=== PATIENT | male | born 1955 ===

== ENCOUNTER 2018-04-09 15:04 | Observation (INO) | payer OTHER ==
[~2018-04-09] VITALS: Ht 182.9 cm; Wt 109.0 kg
[2018-04-09 15:51] LABS: BASOPHILS ABSOLUTE AUTO 0.02 K/mm3 (0.00-0.23); BASOPHILS PERCENT AUTO 0 % (0-2); EOSINOPHILS ABSOLUTE AUTO 0.08 K/mm3 (0.00-0.68); EOSINOPHILS PERCENT AUTO 1 % (0-6); Hematocrit 34.3 % (37.0-53.0); Hemoglobin 11.1 g/dL (13.5-17.5); IMMATURE GRAN ABSOLUTE AUTO 0.02 K/mm3 (0.00-0.10); IMMATURE GRAN PERCENT AUTO 0 % (0-1); LYMPHOCYTES ABSOLUTE AUTO 1.51 K/mm3 (0.84-5.20); LYMPHOCYTES PERCENT AUTO 27 % (21-46); MONOCYTES ABSOLUTE AUTO 0.55 K/mm3 (0.16-1.47); MONOCYTES PERCENT AUTO 10 % (4-13); Mean Corpuscular HGB 31.9 pg (26.0-34.0); Mean Corpuscular HGB Conc 32.4 g/dL (31.5-36.5); Mean Corpuscular Volume 99 fL (80-100); Mean Platelet Volume 9.5 fL (9.1-12.4); NEUTROPHILS ABSOLUTE AUTO 3.45 K/mm3 (1.96-9.15); NEUTROPHILS PERCENT AUTO 61 % (41-73); Platelet Count 187 K/mm3 (150-400); RDW Coefficient Variation 14.6 % (11.7-14.2); RDW Standard Deviation 52.8 fL (35.1-46.3); Red Blood Cell Count 3.48 M/mm3 (4.30-5.90); White Blood Cell Count 5.63 K/mm3 (4.00-11.30)
[2018-04-09 16:11] LABS: Troponin I 0.037 ng/mL (0.000-0.040)
[2018-04-09 16:17] LABS: Creatine Kinase MB 1.1 ng/mL (0.0-3.6); Creatine Kinase MB Index 1.1 (0.0-4.0)
[2018-04-09 16:33] LABS: Albumin, Blood 3.8 g/dL (3.4-5.0); Albumin/Globulin Ratio 0.9 (0.8-1.8); Bilirubin, Total 0.6 mg/dL (0.1-1.0); Bun/Creatinine Ratio 5.2 (12.0-20.0); Calcium, Blood 8.6 mg/dL (8.5-10.1); Creatinine, Blood 9.18 mg/dL (0.60-1.20); Globulin, Blood 4.3 g/dL (2.2-4.0); Potassium, Blood 3.9 mmol/L (3.5-5.5); Total Protein, Blood 8.1 g/dL (6.4-8.2)
[2018-04-09] MEDS ORDERED: AMLO10 PO (22:25)
[2018-04-09] MEDS ORDERED: Aspirin EC81 MG PO (22:27)
[2018-04-09] MEDS ORDERED: Lipitor20 MG PO (22:27)
[2018-04-09] MEDS ORDERED: CHOL10002 (22:28)
[2018-04-09] MEDS ORDERED: CHOL10002 PO (22:34)
[2018-04-09] MEDS ORDERED: CLON.1 (22:36)
[2018-04-09] MEDS ORDERED: COMBIVENT RESPIM4 GM INH (22:38)
[2018-04-09] MEDS ORDERED: Vitamin B-121000 MCG PO (22:41)
[2018-04-09] MEDS ORDERED: FENO48 PO (22:41)
[2018-04-09] MEDS ORDERED: Flonase 0.05% N16 GM (22:46)
[2018-04-09] MEDS ORDERED: LOSA50 PO (22:47)
[2018-04-09] MEDS ORDERED: NEPHRO-VITE RX1 EACH PO (22:48)
[2018-04-09] MEDS ORDERED: METO50 PO (22:48)
[2018-04-09] MEDS ORDERED: Hair, Skin & N1 EACH (22:49)
[2018-04-09] MEDS ORDERED: SEVEC800 PO (22:52)
[2018-04-10 05:47] LABS: BASOPHILS ABSOLUTE AUTO 0.03 K/mm3 (0.00-0.23); BASOPHILS PERCENT AUTO 1 % (0-2); EOSINOPHILS PERCENT AUTO 2 % (0-6); Hematocrit 33.3 % (37.0-53.0); Hemoglobin 10.7 g/dL (13.5-17.5); IMMATURE GRAN ABSOLUTE AUTO 0.02 K/mm3 (0.00-0.10); IMMATURE GRAN PERCENT AUTO 0 % (0-1); LYMPHOCYTES ABSOLUTE AUTO 1.24 K/mm3 (0.84-5.20); LYMPHOCYTES PERCENT AUTO 21 % (21-46); MONOCYTES ABSOLUTE AUTO 0.65 K/mm3 (0.16-1.47); MONOCYTES PERCENT AUTO 11 % (4-13); Mean Corpuscular HGB 31.7 pg (26.0-34.0); Mean Corpuscular HGB Conc 32.1 g/dL (31.5-36.5); Mean Corpuscular Volume 99 fL (80-100); NEUTROPHILS ABSOLUTE AUTO 4.01 K/mm3 (1.96-9.15); NEUTROPHILS PERCENT AUTO 66 % (41-73); RDW Coefficient Variation 14.5 % (11.7-14.2); RDW Standard Deviation 52.5 fL (35.1-46.3); Red Blood Cell Count 3.38 M/mm3 (4.30-5.90); White Blood Cell Count 6.05 K/mm3 (4.00-11.30)
[2018-04-10 05:54] LABS: Mean Platelet Volume 10.7 fL (9.1-12.4); Platelet Count 136 K/mm3 (150-400)
[2018-04-10 06:27] LABS: Albumin, Blood 3.8 g/dL (3.4-5.0); Anion Gap 12 mmol/L (6-16); Blood Urea Nitrogen 54 mg/dL (8-24); Bun/Creatinine Ratio 5.2 (12.0-20.0); CO2, Blood 27 mmol/L (21-32); Calcium, Blood 8.4 mg/dL (8.5-10.1); Chloride, Blood 101 mmol/L (98-108); Glomerular Filtration Rate 5 (60-); Glucose, Blood 83 mg/dL (70-99); Phosphorus, Blood 6.3 mg/dL (2.5-4.9); Sodium, Blood 140 mmol/L (136-145)
[2018-04-11 18:19] LABS: BASOPHILS ABSOLUTE AUTO 0.03 K/mm3 (0.00-0.23); BASOPHILS PERCENT AUTO 1 % (0-2); EOSINOPHILS ABSOLUTE AUTO 0.08 K/mm3 (0.00-0.68); EOSINOPHILS PERCENT AUTO 2 % (0-6); Hematocrit 30.9 % (37.0-53.0); Hemoglobin 10.1 g/dL (13.5-17.5); IMMATURE GRAN ABSOLUTE AUTO 0.01 K/mm3 (0.00-0.10); IMMATURE GRAN PERCENT AUTO 0 % (0-1); LYMPHOCYTES ABSOLUTE AUTO 1.32 K/mm3 (0.84-5.20); LYMPHOCYTES PERCENT AUTO 26 % (21-46); MONOCYTES ABSOLUTE AUTO 0.61 K/mm3 (0.16-1.47); MONOCYTES PERCENT AUTO 12 % (4-13); Mean Corpuscular HGB 31.9 pg (26.0-34.0); Mean Corpuscular HGB Conc 32.7 g/dL (31.5-36.5); Mean Corpuscular Volume 98 fL (80-100); Mean Platelet Volume 9.8 fL (9.1-12.4); NEUTROPHILS ABSOLUTE AUTO 3.03 K/mm3 (1.96-9.15); NEUTROPHILS PERCENT AUTO 60 % (41-73); Platelet Count 165 K/mm3 (150-400); RDW Coefficient Variation 14.3 % (11.7-14.2); RDW Standard Deviation 51.2 fL (35.1-46.3); Red Blood Cell Count 3.17 M/mm3 (4.30-5.90); White Blood Cell Count 5.08 K/mm3 (4.00-11.30)
[2018-04-11 18:55] LABS: Albumin, Blood 3.5 g/dL (3.4-5.0); Anion Gap 11 mmol/L (6-16); Blood Urea Nitrogen 63 mg/dL (8-24); Bun/Creatinine Ratio 5.8 (12.0-20.0); CO2, Blood 28 mmol/L (21-32); Calcium, Blood 8.5 mg/dL (8.5-10.1); Chloride, Blood 99 mmol/L (98-108); Glomerular Filtration Rate 5 (60-); Glucose, Blood 126 mg/dL (70-99); Phosphorus, Blood 5.4 mg/dL (2.5-4.9); Potassium, Blood 3.7 mmol/L (3.5-5.5); Sodium, Blood 138 mmol/L (136-145)
[2018-04-12 09:17] LABS: Hemoglobin 10.9 g/dL (13.5-17.5)
[2018-04-12 09:46] LABS: Magnesium, Blood 2.1 mg/dL (1.6-2.4)
[2018-04-12 10:01] LABS: Albumin, Blood 3.8 g/dL (3.4-5.0); Anion Gap 11 mmol/L (6-16); Blood Urea Nitrogen 50 mg/dL (8-24); Bun/Creatinine Ratio 5.2 (12.0-20.0); CO2, Blood 27 mmol/L (21-32); Calcium, Blood 8.9 mg/dL (8.5-10.1); Chloride, Blood 98 mmol/L (98-108); Glomerular Filtration Rate 6 (60-); Glucose, Blood 102 mg/dL (70-99); Phosphorus, Blood 5.8 mg/dL (2.5-4.9); Sodium, Blood 136 mmol/L (136-145)
== END 2018-04-13 12:52 | disposition home or self-care (01) ==
LOC: ER 15:04 → MEDS 15:05 → ER 17:38 → MEDS 17:38 → ENPENDDIS 04-13 09:50 → MEDS 04-13 12:52
PROVIDERS: Emergency Medicine; Internal Medicine; Internal Medicine Nephrology
DX: I13.0 Hypertensive heart and chronic kidney disease with heart failure and stage 1 through stage 4 chronic kidney disease, or unspecified chronic kidney disease (principal); I50.23 Acute on chronic systolic (congestive) heart failure; E11.22 Type 2 diabetes mellitus with diabetic chronic kidney disease; N18.6 End stage renal disease; J96.00 Acute respiratory failure, unspecified whether with hypoxia or hypercapnia; E11.40 Type 2 diabetes mellitus with diabetic neuropathy, unspecified; I25.10 Atherosclerotic heart disease of native coronary artery without angina pectoris; N25.81 Secondary hyperparathyroidism of renal origin; E83.39 Other disorders of phosphorus metabolism; E78.5 Hyperlipidemia, unspecified; K21.9 Gastro-esophageal reflux disease without esophagitis; J44.9 Chronic obstructive pulmonary disease, unspecified; Z87.891 Personal history of nicotine dependence; Z95.5 Presence of coronary angioplasty implant and graft; Z82.49 Family history of ischemic heart disease and other diseases of the circulatory system; Z79.82 Long term (current) use of aspirin; Z79.899 Other long term (current) drug therapy
CPT/HCPCS: 36415; 71045; 71046; 71250; 80053; 80069; 82550; 82553; 82947; 83735; 83880; 84484; 85014; 85018; 85025; 85027; 93005; 93010; 93306; 94640; 94760; 96374; 99285-25; G0257; J1940; J1956; J7050

== ENCOUNTER → 2018-08-22 | Outpatient (CLI) | payer OTHER ==
[~2018-08-22] MED LIST: AMLO10 PO; Aspirin EC81 MG PO; CHOL10002; CHOL10002 PO; CLON.1; COMBIVENT RESPIM4 GM INH; FENO48 PO; Flonase 0.05% N16 GM; Hair, Skin & N1 EACH; LOSA50 PO; Lipitor20 MG PO; METO50 PO; NEPHRO-VITE RX1 EACH PO; SEVEC800 PO; Vitamin B-121000 MCG PO
[2018-08-25 09:13] LABS: COTININE Negative ng/mL ({null, Cutoff=300})
== END | disposition home or self-care (01) ==
LOC: LAB SHORT 09:19 → LAB 09:19
PROVIDERS: Internal Medicine Nephrology
DX: F17.203 Nicotine dependence unspecified, with withdrawal (principal)

== ENCOUNTER 2018-11-05 18:28 | Emergency (ER) | payer OTHER ==
[~2018-11-05] VITALS: Ht 182.9 cm; Wt 102.1 kg
== END 2018-11-05 18:50 | disposition left against medical advice (07) ==
LOC: ER 18:28
DX: Z53.21 Procedure and treatment not carried out due to patient leaving prior to being seen by health care provider (principal)
CPT/HCPCS: 99281

== ENCOUNTER 2018-11-26 13:49 | Observation (INO) | payer OTHER ==
[~2018-11-26] VITALS: Ht 182.9 cm; Wt 103.6 kg
[2018-11-26 14:51] LABS: BASOPHILS ABSOLUTE AUTO 0.01 K/mm3 (0.00-0.23); BASOPHILS PERCENT AUTO 0 % (0-2); EOSINOPHILS ABSOLUTE AUTO 0.06 K/mm3 (0.00-0.68); EOSINOPHILS PERCENT AUTO 1 % (0-6); Hematocrit 28.4 % (37.0-53.0); Hemoglobin 8.8 g/dL (13.5-17.5); IMMATURE GRAN ABSOLUTE AUTO 0.02 K/mm3 (0.00-0.10); IMMATURE GRAN PERCENT AUTO 1 % (0-1); LYMPHOCYTES PERCENT AUTO 17 % (21-46); MONOCYTES ABSOLUTE AUTO 0.52 K/mm3 (0.16-1.47); MONOCYTES PERCENT AUTO 12 % (4-13); Mean Corpuscular HGB 30.9 pg (26.0-34.0); Mean Corpuscular Volume 100 fL (80-100); Mean Platelet Volume 10.6 fL (9.1-12.4); NEUTROPHILS ABSOLUTE AUTO 2.88 K/mm3 (1.96-9.15); NEUTROPHILS PERCENT AUTO 69 % (41-73); Platelet Count 133 K/mm3 (150-400); RDW Coefficient Variation 14.7 % (11.7-14.2); RDW Standard Deviation 53.6 fL (35.1-46.3); Red Blood Cell Count 2.85 M/mm3 (4.30-5.90); White Blood Cell Count 4.19 K/mm3 (4.00-11.30)
[2018-11-26 14:57] LABS: Troponin I <0.015 ng/mL (0.000-0.040)
[2018-11-26 15:09] LABS: Alanine Aminotransfer (ALT/SGP 25 U/L (12-78); Albumin, Blood 3.8 g/dL (3.4-5.0); Albumin/Globulin Ratio 1.1 (0.8-1.8); Alk Phos 52 U/L (50-136); Anion Gap 10 mmol/L (6-16); Aspartate Aminotrans (AST/SGOT 14 U/L (12-37); Bilirubin, Total 0.6 mg/dL (0.1-1.0); Blood Urea Nitrogen 73 mg/dL (8-24); Bun/Creatinine Ratio 7.1 (12.0-20.0); CO2, Blood 33 mmol/L (21-32); Chloride, Blood 99 mmol/L (98-108); Globulin, Blood 3.4 g/dL (2.2-4.0); Glomerular Filtration Rate 5 (60-); Glucose, Blood 95 mg/dL (70-99); Potassium, Blood 4.7 mmol/L (3.5-5.5); Sodium, Blood 142 mmol/L (136-145); Total Protein, Blood 7.2 g/dL (6.4-8.2)
[2018-11-26] MEDS ORDERED: ACET325 PO (16:57)
[2018-11-26] MEDS ORDERED: HYDRA50 PO (16:58)
[2018-11-26] MEDS ORDERED: SEVEC800 PO ×2 (16:58)
[2018-11-26] MEDS ORDERED: HYDMOR2 PO (16:59)
[2018-11-26] MEDS ORDERED: AMLO10 PO (17:51)
[2018-11-26] MEDS ORDERED: CLON.1 PO (17:55)
[2018-11-26] MEDS ORDERED: CLOP75 PO (17:57)
--- NOTE | 2018-11-26 19:05 | NUR ---
new er admit PT UP TO RM FROM ER APPROX 1730. HE IS A/O X4, PLEASANT AFFECT. STATE REASON FOR HOSP SHORTNESS OF BREATH FOLLOWING HEMODIALYSIS, SENT TO HOSP BY DR BOUDREAUX. STATE NO SOB @ THIS TIME. STATE SCIATIC PAIN 5/10, PRN DILAUDID GIVEN. PT WAS SUPPOSED TO HAVE CT PE STUDY HOWEVER IV SITE ETIENNE FAILED. DR DRAKE NOTIFIED CHANGE TO VQ SCAN IN AM. DR BOUDREAUX PLACE ORDER FOR TYPE/CROSS & 1 UNIT PRBC WITH DIALYSIS, POLICE RADIO DISPATCHER STATE THERE IS NO ORDER FOR DIALYSIS [facility] & NO ACTING SECTION CHIEF @ HOSP [facility], STATE HD WILL BE TOMORROW, PT NOTIFIED. NOC RN WILL VERIFY & DEFER TYPR/CROSS TO AM LABS. MEDICATIONS VERIFIED, DR DRAKE NOTIFIED, REVIEW & ADJUST ORDERS. BLADDER SCAN/ORDER--106 ML. PT SITTING UP ON BEDSIDE FOR DINNER, @ BEDSIDE. REPORT TO NOC RN.
[2018-11-27 04:55] LABS: Hematocrit 29.6 % (37.0-53.0); Hemoglobin 9.1 g/dL (13.5-17.5)
[2018-11-27 05:35] LABS: Magnesium, Blood 2.6 mg/dL (1.6-2.4)
[2018-11-27 06:00] LABS: Anion Gap 12 mmol/L (6-16); Blood Urea Nitrogen 86 mg/dL (8-24); CO2, Blood 28 mmol/L (21-32); Chloride, Blood 98 mmol/L (98-108); Glucose, Blood 99 mg/dL (70-99); Potassium, Blood 4.6 mmol/L (3.5-5.5); Sodium, Blood 138 mmol/L (136-145)
[2018-11-27 06:01] LABS: Albumin, Blood 3.9 g/dL (3.4-5.0); Bun/Creatinine Ratio 7.2 (12.0-20.0); Glomerular Filtration Rate 4 (60-); Phosphorus, Blood 7.3 mg/dL (2.5-4.9)
--- NOTE | 2018-11-27 07:20 | NUR ---
a+o, call light in reach, 2L via nc, saline vandana, walking rounds completed with day staff
--- NOTE | 2018-11-27 09:15 | NUR ---
VQ SCAN COMPLETED AND NOW AT DIALYSIS.
[2018-11-27] MEDS ORDERED: Flonase 0.05% N16 GM (13:34)
[2018-11-27] MEDS ORDERED: ALBU90OI6 INH (13:35)
[2018-11-27] MEDS ORDERED: PANT40 PO (13:35)
--- NOTE | 2018-11-27 16:19 | NUR ---
DISCHARGE INSTRUCTIONS COMPLETED AND DISCUSSED WITH PT EXPRESSING UNDERSTANDING. AT BEDSIDE WELL AND LISTENING. RECEIVED A CALL JUST PRIOR TO PT DISCHARGING FROM [facility] FROM [facility] WITH APPT TIMES. DIALYSIS COMPLETED TODAY. TO [facility] VIA W/C.
== END 2018-11-27 14:59 | disposition home or self-care (01) ==
LOC: ER 13:49 → MEDS 16:22 → ENPENDDIS 11-27 13:05 → MEDS 11-27 14:59
PROVIDERS: Emergency Medicine; Internal Medicine Nephrology; ADMIT Internal Medicine
DX: R06.02 Shortness of breath (principal); I25.10 Atherosclerotic heart disease of native coronary artery without angina pectoris; E11.22 Type 2 diabetes mellitus with diabetic chronic kidney disease; I13.2 Hypertensive heart and chronic kidney disease with heart failure and with stage 5 chronic kidney disease, or end stage renal disease; I50.9 Heart failure, unspecified; N18.6 End stage renal disease; D63.1 Anemia in chronic kidney disease; E78.5 Hyperlipidemia, unspecified; K21.9 Gastro-esophageal reflux disease without esophagitis; J44.9 Chronic obstructive pulmonary disease, unspecified; Z87.891 Personal history of nicotine dependence; Z79.82 Long term (current) use of aspirin; Z79.899 Other long term (current) drug therapy; Z99.2 Dependence on renal dialysis
CPT/HCPCS: 36415; 36430; 71046; 78582; 80048; 80053; 80069; 82947; 83735; 84484; 85014; 85018; 85025; 86038; 86850; 86900; 86901; 86923; 93005; 93010; 94640; 94760; 96372; 99285-25; A9540; A9558; G0257; G0378; J0881; J1644; P9016

== ENCOUNTER → 2019-01-01 | Outpatient (CLI) | payer OTHER ==
[~2019-01-01] MED LIST changes: +ACET325 PO; +ACET500 PO; +ALBU90OI6 INH; +CLON.1 PO; +CLOP75 PO; +HYDCHL50 PO; +HYDMOR2 PO; +HYDRA50 PO; +PANT40 PO; +SENN187 PO; +VELPHORO500 MG PO; +Vitamin B Comple1 EA PO
== END | disposition home or self-care (01) ==
LOC: LAB 12:00 → LAB SHORT 12:00
DX: N39.0 Urinary tract infection, site not specified (principal)
CPT/HCPCS: 87086

== ENCOUNTER 2019-02-27 06:46 | Day surgery (SDC) | payer OTHER ==
[~2019-02-27] VITALS: Ht 170.2 cm; Wt 96.1 kg
[~2019-02-27 06:46] MED LIST changes: -ACET500 PO; -SENN187 PO
--- NOTE | 2019-02-27 07:11 | NUR ---
History, Chart, Medications and Allergies reviewed before start of procedure. Patient confirms NPO status and agrees with scheduled surgery. Patient States Post-Procedure ride home has been arranged with his .
[2019-02-27] MEDS ORDERED: ACET500 PO (08:07)
[2019-02-27] MEDS ORDERED: SENN187 PO (08:07)
--- NOTE | 2019-02-27 08:39 | NUR ---
K+ RUN BY RESPIRATORY THERAPY PER DR. FULLER.
--- NOTE | 2019-02-27 12:16 | NUR ---
"DAY SURGERY RN | DISCHARGED VSS. A/O. Discharge instructions given, RX given, denies questions. Steady on feet. is ride home. Denies nausea. Pain 2/10 at this time. Taken in wheelchair to front entrance by this RN. No issues."
== END 2019-02-27 23:59 | disposition home or self-care (01) ==
LOC: ORSCMMR 06:46 → ORD 08:30 → ORSCMMR 08:30
PROVIDERS: Surgery
PROC: 0FT44ZZ Resection of Gallbladder, Percutaneous Endoscopic Approach (ICD-10-PCS; principal; 2019-02-27 08:30)
PROC: BF031ZZ Plain Radiography of Gallbladder and Bile Ducts using Low Osmolar Contrast (ICD-10-PCS; principal; 2019-02-27 08:30)
DX: K80.10 Calculus of gallbladder with chronic cholecystitis without obstruction (principal); E11.22 Type 2 diabetes mellitus with diabetic chronic kidney disease; I13.11 Hypertensive heart and chronic kidney disease without heart failure, with stage 5 chronic kidney disease, or end stage renal disease; N18.6 End stage renal disease; Z99.2 Dependence on renal dialysis; B19.20 Unspecified viral hepatitis C without hepatic coma; I25.2 Old myocardial infarction; E78.5 Hyperlipidemia, unspecified; Z79.01 Long term (current) use of anticoagulants; Z79.82 Long term (current) use of aspirin; Z79.899 Other long term (current) drug therapy
CPT/HCPCS: 74300; 82435; 82947; 84132; 84295; 88304; A9270-GY; C1729; J0690; J2405; J2704; J3010; J7030

== ENCOUNTER 2019-04-19 17:50 | Inpatient (IN) | payer OTHER ==
[~2019-04-19] VITALS: Ht 182.9 cm; Wt 98.9 kg
[~2019-04-19 17:50] MED LIST changes: +ACET500 PO; +SENN187 PO
[2019-04-19 20:58] LABS: BASOPHILS ABSOLUTE AUTO 0.03 K/mm3 (0.00-0.23); BASOPHILS PERCENT AUTO 1 % (0-2); EOSINOPHILS ABSOLUTE AUTO 0.06 K/mm3 (0.00-0.68); EOSINOPHILS PERCENT AUTO 1 % (0-6); Hematocrit 25.7 % (37.0-53.0); Hemoglobin 8.1 g/dL (13.5-17.5); IMMATURE GRAN ABSOLUTE AUTO 0.04 K/mm3 (0.00-0.10); IMMATURE GRAN PERCENT AUTO 1 % (0-1); LYMPHOCYTES ABSOLUTE AUTO 0.88 K/mm3 (0.84-5.20); LYMPHOCYTES PERCENT AUTO 15 % (21-46); MONOCYTES PERCENT AUTO 9 % (4-13); Mean Corpuscular HGB 31.5 pg (26.0-34.0); Mean Corpuscular HGB Conc 31.5 g/dL (31.5-36.5); Mean Corpuscular Volume 100 fL (80-100); Mean Platelet Volume 10.4 fL (9.1-12.4); NEUTROPHILS ABSOLUTE AUTO 4.32 K/mm3 (1.96-9.15); NEUTROPHILS PERCENT AUTO 74 % (41-73); Platelet Count 164 K/mm3 (150-400); RDW Coefficient Variation 14.9 % (11.7-14.2); RDW Standard Deviation 53.1 fL (35.1-46.3); Red Blood Cell Count 2.57 M/mm3 (4.30-5.90); White Blood Cell Count 5.83 K/mm3 (4.00-11.30)
[2019-04-19 21:22] LABS: Magnesium, Blood 2.1 mg/dL (1.6-2.4); Troponin I 0.406 ng/mL (0.000-0.040)
[2019-04-19 21:26] LABS: Albumin, Blood 4.2 g/dL (3.4-5.0); Albumin/Globulin Ratio 1.1 (0.8-1.8); Bilirubin, Total 0.6 mg/dL (0.1-1.0); Bun/Creatinine Ratio 5.5 (12.0-20.0); Calcium, Blood 9.9 mg/dL (8.5-10.1); Creatinine, Blood 8.21 mg/dL (0.60-1.20); Globulin, Blood 3.7 g/dL (2.2-4.0); Potassium, Blood 4.2 mmol/L (3.5-5.5); Total Protein, Blood 7.9 g/dL (6.4-8.2)
--- NOTE | 2019-04-20 05:00 | NUR ---
SHIFT SUMMARY PT ADMITTED FOR ACUTE ON CHRONIC SYSTOLIC CHF. HE IS A FULL CODE. HE IS A DIAYLYSIS PT AND DR. BOUDREAUX WILL BE CONSULTING WITH HIM TODAY. 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 HE IS ON 2L NC HE REPORTS IS NOT HIS BASELINE (RA IS BASELINE) HE IS ON A RENAL DIET AND HAS ESRD. PT CAME TO FLOOR WITHOUT IV ACCESS. THE ED NURSE REPORTED SIX ATTEMPTS BY STAFF IN ED. HE HAD AN ORDER FOR TELE WHICH WAS PUT ON THEN PT REFUSED IV ACCESS SO DR. LEMUS WAS CALLED TO SEE WHAT TO DO ABOUT THE TELE AT 0420. DR. SU SAID TO D/C THE TELE. AT 0432 PT WAS EDUCATED ON THE RISKS OF REMOVING TELE AND WHY IV ACCESS IS NEEDED TO KEEP TELE BUT PT STILL REFUSED. HE REPORTS NO SOB OR CHEST PAIN AT THIS TIME. WILL CONTINUE TO MONITOR.
[2019-04-20 05:19] LABS: BASOPHILS ABSOLUTE AUTO 0.03 K/mm3 (0.00-0.23); BASOPHILS PERCENT AUTO 1 % (0-2); EOSINOPHILS PERCENT AUTO 2 % (0-6); Hematocrit 26.4 % (37.0-53.0); Hemoglobin 8.2 g/dL (13.5-17.5); IMMATURE GRAN ABSOLUTE AUTO 0.02 K/mm3 (0.00-0.10); IMMATURE GRAN PERCENT AUTO 0 % (0-1); LYMPHOCYTES ABSOLUTE AUTO 1.03 K/mm3 (0.84-5.20); LYMPHOCYTES PERCENT AUTO 23 % (21-46); MONOCYTES ABSOLUTE AUTO 0.39 K/mm3 (0.16-1.47); MONOCYTES PERCENT AUTO 9 % (4-13); Mean Corpuscular HGB 30.6 pg (26.0-34.0); Mean Corpuscular HGB Conc 31.1 g/dL (31.5-36.5); Mean Corpuscular Volume 99 fL (80-100); Mean Platelet Volume 10.5 fL (9.1-12.4); NEUTROPHILS PERCENT AUTO 65 % (41-73); Platelet Count 161 K/mm3 (150-400); RDW Standard Deviation 53.2 fL (35.1-46.3); Red Blood Cell Count 2.68 M/mm3 (4.30-5.90); White Blood Cell Count 4.47 K/mm3 (4.00-11.30)
--- NOTE | 2019-04-20 06:12 | NUR ---
SPOKE WITH AT 0600 I SPOKE WITH THE PT'S BECAUSE SHE HAD QUESTIONS ABOUT WHAT MEDICATIONS THE PT WAS TAKING. ENCORUAGED TO BRING IN MEDICATIONS. SHE AGREED.
[2019-04-20 06:15] LABS: Calcium, Blood 9.6 mg/dL (8.5-10.1)
[2019-04-20 06:17] LABS: Bun/Creatinine Ratio 5.1 (12.0-20.0); Creatinine, Blood 9.34 mg/dL (0.60-1.20)
[2019-04-20 06:19] LABS: Troponin I 4.37 ng/mL (0.000-0.040)
--- NOTE | 2019-04-20 15:26 | NUR ---
PT WAS TRANSPORTED TO THE NEONATAL SURGEON FOR AN ANGIOGRAM. PT TOOK ALL BELONGINGS WITH HER TO THE WAITING AREA. PT WAS STABLE UPON TRANSFER.
--- NOTE | 2019-04-20 18:37 | NUR ---
PT ARRIVED TO UNIT @ 1749, ALERT AND ORIENTED. R RADIAL SITE CHECKED Q15M, REMAINS SOFT, NON-TENDER, W/O BLEEDING, CUFF REMAINS INFLATED WTIH 12CC OF AIR.
[2019-04-20 18:59] LABS: Albumin, Blood 3.9 g/dL (3.4-5.0); Anion Gap 8 mmol/L (6-16); Blood Urea Nitrogen 33 mg/dL (8-24); Bun/Creatinine Ratio 4.7 (12.0-20.0); CO2, Blood 32 mmol/L (21-32); Calcium, Blood 9.3 mg/dL (8.5-10.1); Chloride, Blood 93 mmol/L (98-108); Creatinine, Blood 7.06 mg/dL (0.60-1.20); Glomerular Filtration Rate 8 (60-); Glucose, Blood 84 mg/dL (70-99); Phosphorus, Blood 3.8 mg/dL (2.5-4.9); Potassium, Blood 3.8 mmol/L (3.5-5.5); Sodium, Blood 133 mmol/L (136-145)
--- NOTE | 2019-04-20 19:30 | NUR ---
DR BOUDREAUX CALLED @ 1810 REGARDING BP (170-180'S SYSTOLIC) AND PTS REQUEST TO TAKE EVENING BP MEDS EARLY. DR BOUDREAUX OK'D TAKING MEDICATIONS EARLY AND ORDERED A STAT RENAL PANEL. DR BOUDREAUX CALLED @ 1900 WITH LAB RESULTS. HYDRALAZINE ORDERED FOR HTN.
--- NOTE | 2019-04-20 19:45 | NUR ---
REPORT CALLED TO PIYUSH ASHFORD AT [facility].
--- NOTE | 2019-04-20 19:46 | NUR ---
PT LEFT ICU IN STABLE CONDITION WITH [facility]. TR BAND IN PLACE WITH 5CC OF AIR, 7 CC'S OF AIR REMOVED W/O OOZING.
== END 2019-04-20 19:45 | disposition short-term general hospital (02) | DRG 280 ==
LOC: ER 17:50 → MEDS 22:24 → ICUW 04-20 16:46
PROVIDERS: Emergency Medicine; ADMIT Hospitalist
PROC: 4A023N7 Measurement of Cardiac Sampling and Pressure, Left Heart, Percutaneous Approach (ICD-10-PCS; principal; 2019-04-20)
PROC: B211YZZ Fluoroscopy of Multiple Coronary Arteries using Other Contrast (ICD-10-PCS; 2019-04-20)
PROC: 5A1D70Z Performance of Urinary Filtration, Intermittent, Less than 6 Hours Per Day (ICD-10-PCS; 2019-04-20)
DX: I13.2 Hypertensive heart and chronic kidney disease with heart failure and with stage 5 chronic kidney disease, or end stage renal disease (principal); I21.4 Non-ST elevation (NSTEMI) myocardial infarction; I50.23 Acute on chronic systolic (congestive) heart failure; N18.6 End stage renal disease; J96.01 Acute respiratory failure with hypoxia; Z99.2 Dependence on renal dialysis; D63.1 Anemia in chronic kidney disease; Z79.82 Long term (current) use of aspirin; E78.5 Hyperlipidemia, unspecified; K21.9 Gastro-esophageal reflux disease without esophagitis; J44.9 Chronic obstructive pulmonary disease, unspecified; Z87.891 Personal history of nicotine dependence
CPT/HCPCS: 36415; 36430; 71046; 80048; 80053; 80069; 83735; 83880; 84484; 85025; 85347; 85730; 86850; 86900; 86901; 86923; 92978; 93005; 93010; 93306; 93458; 99152; 99153; 99285-25; A9270; C1753; C1769; C1887; C1894; J1644; J2250; J3010; J7030; P9016; Q9967

== ENCOUNTER 2019-05-10 16:47 | Day surgery (SDC) | payer OTHER ==
[2019-05-11] MEDS ORDERED: Amlodipine Besy10 MG PO (14:00)
[2019-05-11] MEDS ORDERED: Lipitor20 MG PO (14:01)
[2019-05-11] MEDS ORDERED: ATOR40TA PO (14:02)
[2019-05-11] MEDS ORDERED: Metoprolol Succ25 MG PO (14:03)
[2019-05-11] MEDS ORDERED: OXYC5 PO (14:04)
[2019-05-11] MEDS ORDERED: CLOP75 PO (14:05)
== END 2019-05-14 23:12 | disposition home or self-care (01) ==
LOC: ATC 16:47 → LAB 16:47
DX: N18.6 End stage renal disease (principal); D63.1 Anemia in chronic kidney disease
CPT/HCPCS: 86850; 86900; 86901; 86923

== ENCOUNTER 2019-05-11 12:13 | Day surgery (SDC) | payer OTHER ==
[2019-05-11] MEDS ORDERED: Amlodipine Besy10 MG PO (14:00)
[2019-05-11] MEDS ORDERED: Lipitor20 MG PO (14:01)
[2019-05-11] MEDS ORDERED: ATOR40TA PO (14:02)
[2019-05-11] MEDS ORDERED: Metoprolol Succ25 MG PO (14:03)
[2019-05-11] MEDS ORDERED: OXYC5 PO (14:04)
[2019-05-11] MEDS ORDERED: CLOP75 PO (14:05)
== END 2019-05-11 22:36 | disposition home or self-care (01) ==
LOC: ATC 12:13
DX: I12.0 Hypertensive chronic kidney disease with stage 5 chronic kidney disease or end stage renal disease (principal); E11.22 Type 2 diabetes mellitus with diabetic chronic kidney disease; N18.6 End stage renal disease; D63.1 Anemia in chronic kidney disease; I25.10 Atherosclerotic heart disease of native coronary artery without angina pectoris; E78.5 Hyperlipidemia, unspecified; E11.40 Type 2 diabetes mellitus with diabetic neuropathy, unspecified; G47.30 Sleep apnea, unspecified; Z79.899 Other long term (current) drug therapy; Z79.82 Long term (current) use of aspirin
CPT/HCPCS: 36430; 86850; 86900; 86901; 86923; J7050; P9016

== ENCOUNTER 2021-10-19 00:59 | Day surgery (SDC) | payer OTHER ==
[~2021-10-19 00:59] MED LIST changes: +ATOR40TA PO; +Amlodipine Besy10 MG PO; +Metoprolol Succ25 MG PO; +OXYC5 PO
== END 2021-10-19 10:11 | disposition home or self-care (01) ==
LOC: ATC 00:59
DX: T86.11 Kidney transplant rejection (principal)
CPT/HCPCS: 96365; 96366; A9270; J1569

== ENCOUNTER 2021-10-20 00:18 | Day surgery (SDC) | payer OTHER | END 2021-10-20 10:21 | disposition home or self-care (01) | LOC: ATC 00:18 | DX: T86.11 Kidney transplant rejection (principal); E11.42 Type 2 diabetes mellitus with diabetic polyneuropathy; I12.0 Hypertensive chronic kidney disease with stage 5 chronic kidney disease or end stage renal disease; E11.22 Type 2 diabetes mellitus with diabetic chronic kidney disease; N18.6 End stage renal disease; N25.81 Secondary hyperparathyroidism of renal origin; I25.10 Atherosclerotic heart disease of native coronary artery without angina pectoris; Z99.2 Dependence on renal dialysis | CPT/HCPCS: A9270; J1200; J1569 ==

== ENCOUNTER 2021-10-31 22:50 | Inpatient (IN) | payer OTHER ==
[~2021-10-31] VITALS: Ht 182.9 cm; Wt 107.4 kg
[2021-11-01] MEDS ORDERED: CARV25 PO (00:12)
[2021-11-01] MEDS ORDERED: PRED5 PO (00:12)
[2021-11-01] MEDS ORDERED: MYCOPHENOLIC A180 M1 PO (00:14)
[2021-11-01] MEDS ORDERED: TAMS.4ER PO (00:15)
[2021-11-01] MEDS ORDERED: TACROLIMUS PO (00:15)
[2021-11-01 00:37] LABS: Source, Urine Clean Catch
[2021-11-01 00:41] LABS: Appearance, Urine Hazy (Clear); Bilirubin, Urine Neg (Neg); Blood, Urine 4+ (Neg); Color, Urine Yellow (P-Yellow); Glucose Qualitative, Urine Neg (Neg); Ketones, Urine Neg (Neg); Leukocyte Esterase, Urine 2+ (Neg); Nitrite, Urine Pos (Neg); Protein, Urine 2+ (Neg); Urobilinogen, Urine NORM (Normal)
[2021-11-01 00:44] LABS: BASOPHILS ABSOLUTE AUTO 0.01 K/mm3 (0.00-0.23); BASOPHILS PERCENT AUTO 0 % (0-2); EOSINOPHILS PERCENT AUTO 0 % (0-6); Hematocrit 34.7 % (37.0-53.0); Hemoglobin 11.7 g/dL (13.5-17.5); IMMATURE GRAN ABSOLUTE AUTO 0.03 K/mm3 (0.00-0.10); IMMATURE GRAN PERCENT AUTO 0 % (0-1); LYMPHOCYTES ABSOLUTE AUTO 0.56 K/mm3 (0.84-5.20); LYMPHOCYTES PERCENT AUTO 8 % (21-46); MONOCYTES ABSOLUTE AUTO 0.94 K/mm3 (0.16-1.47); MONOCYTES PERCENT AUTO 14 % (4-13); Mean Corpuscular HGB Conc 33.7 g/dL (31.5-36.5); Mean Corpuscular Volume 92 fL (80-100); Mean Platelet Volume 10.2 fL (9.1-12.4); NEUTROPHILS ABSOLUTE AUTO 5.43 K/mm3 (1.96-9.15); NEUTROPHILS PERCENT AUTO 78 % (41-73); Platelet Count 141 K/mm3 (150-400); RDW Coefficient Variation 13.6 % (11.7-14.2); RDW Standard Deviation 45.7 fL (35.1-46.3); Red Blood Cell Count 3.78 M/mm3 (4.30-5.90); White Blood Cell Count 6.97 K/mm3 (4.00-11.30)
[2021-11-01 00:52] LABS: Bacteria Many /hpf; Squamous Epithelial Cells Rare /hpf (Few)
[2021-11-01 01:03] LABS: Alanine Aminotransfer (ALT/SGP 45 U/L (12-78); Albumin, Blood 3.7 g/dL (3.4-5.0); Albumin/Globulin Ratio 0.8 (0.8-1.8); Alk Phos 110 U/L (50-136); Anion Gap 6 mmol/L (6-16); Aspartate Aminotrans (AST/SGOT 22 U/L (12-37); Bilirubin, Total 0.8 mg/dL (0.1-1.0); Blood Urea Nitrogen 23 mg/dL (8-24); Bun/Creatinine Ratio 19.8 (12.0-20.0); CO2, Blood 24 mmol/L (21-32); Calcium, Blood 9.8 mg/dL (8.5-10.1); Chloride, Blood 105 mmol/L (98-108); Creatinine, Blood 1.16 mg/dL (0.60-1.20); Globulin, Blood 4.7 g/dL (2.2-4.0); Glomerular Filtration Rate >60 (60-); Glucose, Blood 137 mg/dL (70-99); Potassium, Blood 4.1 mmol/L (3.5-5.5); Sodium, Blood 135 mmol/L (136-145); Total Protein, Blood 8.4 g/dL (6.4-8.2)
[2021-11-01 01:52] LABS: Influenza A, PCR NEGATIVE (NEGATIVE); Influenza B, PCR NEGATIVE (NEGATIVE); Resp Syncytial Virus, PCR NEGATIVE (NEGATIVE); SARS-Cov-2 (COVID-19) PCR, MMC NEGATIVE (NEGATIVE)
[2021-11-01 06:07] LABS: Hematocrit 30.8 % (37.0-53.0); Hemoglobin 10.1 g/dL (13.5-17.5); Mean Corpuscular HGB 30.4 pg (26.0-34.0); Mean Corpuscular HGB Conc 32.8 g/dL (31.5-36.5); Mean Corpuscular Volume 93 fL (80-100); Mean Platelet Volume 10.3 fL (9.1-12.4); Platelet Count 111 K/mm3 (150-400); RDW Coefficient Variation 13.7 % (11.7-14.2); RDW Standard Deviation 46.9 fL (35.1-46.3); Red Blood Cell Count 3.32 M/mm3 (4.30-5.90); White Blood Cell Count 5.22 K/mm3 (4.00-11.30)
[2021-11-01 06:23] LABS: Anion Gap 6 mmol/L (6-16); Blood Urea Nitrogen 20 mg/dL (8-24); Bun/Creatinine Ratio 18.5 (12.0-20.0); CO2, Blood 22 mmol/L (21-32); Chloride, Blood 109 mmol/L (98-108); Creatinine, Blood 1.08 mg/dL (0.60-1.20); Glomerular Filtration Rate >60 (60-); Glucose, Blood 139 mg/dL (70-99); Potassium, Blood 4.3 mmol/L (3.5-5.5); Sodium, Blood 137 mmol/L (136-145)
--- NOTE | 2021-11-01 14:47 | NUR ---
MEDICAL FLOOR ADMISSION INTIATED IN THE ER. REPORT RECEIVED FROM ED RN. PATIENT TRANSPORTED TO ROOM 357 VIA WHEEL PATIENT. PATIENT SELF TRANSFERED. HE ARRIVED TO MEDICAL UNIT IN STABLE CONDITION. REPORT GIVEN TO MED RN.
[2021-11-01] MEDS ORDERED: FINA5 PO (16:09)
[2021-11-01] MEDS ORDERED: TRAZ50 PO (18:26)
[2021-11-01] MEDS ORDERED: TACR1 PO (18:27)
[2021-11-01] MEDS ORDERED: FAMO20 PO (18:31)
[2021-11-01] MEDS ORDERED: CINACALCET HCL30 M1 PO (18:32)
--- NOTE | 2021-11-02 05:38 | NUR ---
SHIFT SUMMARY AOX4. VSS. TELE NSR HR 72. ADMITTED FOR UTI, PT DENIES BURNING c URINATION, FLANK PAIN OR FREQUENCY. REPORTS 9/10 HEADACHE & NECK PAIN, MEDICATED 1X c ULTRAM & PT ABLE TO REST COMFORTABLY T/O NIGHT. DENIES N/V OR DYSPNEA. HS CBG @123. CALL LIGHT IN REACH & PT ABLE TO MAKE NEEDS KNOWN.
[2021-11-02 08:15] LABS: BASOPHILS ABSOLUTE AUTO 0.03 K/mm3 (0.00-0.23); BASOPHILS PERCENT AUTO 1 % (0-2); EOSINOPHILS ABSOLUTE AUTO 0.03 K/mm3 (0.00-0.68); EOSINOPHILS PERCENT AUTO 1 % (0-6); Hematocrit 33.6 % (37.0-53.0); Hemoglobin 10.9 g/dL (13.5-17.5); IMMATURE GRAN ABSOLUTE AUTO 0.03 K/mm3 (0.00-0.10); IMMATURE GRAN PERCENT AUTO 1 % (0-1); LYMPHOCYTES ABSOLUTE AUTO 0.52 K/mm3 (0.84-5.20); LYMPHOCYTES PERCENT AUTO 12 % (21-46); MONOCYTES ABSOLUTE AUTO 0.67 K/mm3 (0.16-1.47); MONOCYTES PERCENT AUTO 15 % (4-13); Mean Corpuscular HGB 30.1 pg (26.0-34.0); Mean Corpuscular HGB Conc 32.4 g/dL (31.5-36.5); Mean Corpuscular Volume 93 fL (80-100); Mean Platelet Volume 9.5 fL (9.1-12.4); NEUTROPHILS ABSOLUTE AUTO 3.06 K/mm3 (1.96-9.15); NEUTROPHILS PERCENT AUTO 71 % (41-73); Platelet Count 124 K/mm3 (150-400); RDW Coefficient Variation 13.7 % (11.7-14.2); RDW Standard Deviation 46.9 fL (35.1-46.3); Red Blood Cell Count 3.62 M/mm3 (4.30-5.90); White Blood Cell Count 4.34 K/mm3 (4.00-11.30)
[2021-11-02 08:36] LABS: Anion Gap 10 mmol/L (6-16); Blood Urea Nitrogen 18 mg/dL (8-24); Bun/Creatinine Ratio 16.5 (12.0-20.0); CO2, Blood 22 mmol/L (21-32); Calcium, Blood 9.4 mg/dL (8.5-10.1); Chloride, Blood 103 mmol/L (98-108); Creatinine, Blood 1.09 mg/dL (0.60-1.20); Glomerular Filtration Rate >60 (60-); Glucose, Blood 122 mg/dL (70-99); Potassium, Blood 3.9 mmol/L (3.5-5.5); Sodium, Blood 135 mmol/L (136-145)
[2021-11-02] MEDS ORDERED: CIPR250 PO (09:54)
[2021-11-02] MEDS ORDERED: DOCU100 PO (09:55)
[2021-11-02] MEDS ORDERED: VISBIOME 112.51 EACH PO (09:59)
[2021-11-02] MEDS ORDERED: TRAM50 PO (09:59)
--- NOTE | 2021-11-02 13:32 | NUR ---
PT AWAKE AND A&O DURING SHIFT REPORT. PT GIVEN ULTRAM FOR C/O SALEH BY NOC SHIFT; PT REPORTED IT EFFECTIVE. DR HOLLOWAY IN TO SEE PT EARLY. PT TO D/C TO HOME TODAY. PT REPORTED HAVING AN APPT AT [facility] THIS AM FOR ECHO. PT D/C'D AND TAKEN DOWN BEFORE GOING HOME, TO BE ABLE TO MAKE OUTPT APPT. PT'S TO EARLY TO ASSIST PT AT D/C AND THEN TAKE HOME. MEDS FAXED TO [facility], PER PT REQUEST. PT INDEPENDENT IN AND TO [facility]. DENIED FURTHER NEEDS. PT ASSISTED TO [facility] VIA W/C BY STUDENT RN AND AT SIDE. D/C INSTRUCTIONS REVIEWED WITH PT AND ; VERBALIZED UNDERSTANDING. PHARMACY ALSO IN TO TALK WITH PT A COUPLE OF TIMES BEFORE D/C.
== END 2021-11-02 10:25 | disposition home or self-care (01) | DRG 699 ==
LOC: ER 22:50 → ERHOLD 11-01 03:27 → MEDS 11-01 14:36
PROVIDERS: Emergency Medicine; Internal Medicine; Student in an Organized Health Care Education/Training Program; ADMIT Internal Medicine
DX: T86.13 Kidney transplant infection (principal); N39.0 Urinary tract infection, site not specified; B96.1 Klebsiella pneumoniae [K. pneumoniae] as the cause of diseases classified elsewhere; Z20.822 Contact with and (suspected) exposure to COVID-19; I25.10 Atherosclerotic heart disease of native coronary artery without angina pectoris; E78.5 Hyperlipidemia, unspecified; I11.0 Hypertensive heart disease with heart failure; I50.9 Heart failure, unspecified; E11.9 Type 2 diabetes mellitus without complications; J44.9 Chronic obstructive pulmonary disease, unspecified; D63.1 Anemia in chronic kidney disease; D69.6 Thrombocytopenia, unspecified; K21.9 Gastro-esophageal reflux disease without esophagitis; B19.20 Unspecified viral hepatitis C without hepatic coma; I25.2 Old myocardial infarction; Z90.49 Acquired absence of other specified parts of digestive tract; Z87.891 Personal history of nicotine dependence; Z79.82 Long term (current) use of aspirin; Z79.899 Other long term (current) drug therapy; Y83.0 Surgical operation with transplant of whole organ as the cause of abnormal reaction of the patient, or of later complication, without mention of misadventure at the time of the procedure
CPT/HCPCS: 0241U; 36415; 71045; 80048; 80053; 81001; 82947; 83605; 85025; 85027; 87040; 87077; 87086; 87186; 96374; 99285-25; A9270; J0696; J2543; J7030; J7040; J7507; J7512; J7518

== ENCOUNTER 2021-11-23 00:52 | Day surgery (SDC) | payer OTHER ==
[~2021-11-23 00:52] MED LIST changes: +CARV25 PO; +CINACALCET HCL30 M1 PO; +CIPR250 PO; +DOCU100 PO; +FAMO20 PO; +FINA5 PO; +MYCOPHENOLIC A180 M1 PO; +PRED5 PO; +TACR1 PO; +TACROLIMUS PO; +TAMS.4ER PO; +TRAM50 PO; +TRAZ50 PO; +VISBIOME 112.51 EACH PO
== END 2021-11-23 10:51 | disposition home or self-care (01) ==
LOC: ATC 00:52
DX: T86.11 Kidney transplant rejection (principal); Y83.9 Surgical procedure, unspecified as the cause of abnormal reaction of the patient, or of later complication, without mention of misadventure at the time of the procedure
CPT/HCPCS: 96365; A9270; J1569

== ENCOUNTER 2021-12-27 03:38 | Day surgery (SDC) | payer OTHER ==
[~2021-12-27] VITALS: Wt 108.7 kg
[~2021-12-27 03:38] MED LIST changes: +PROGRAF0.5 M1 PO; -TACR1 PO
== END 2021-12-27 11:32 | disposition home or self-care (01) ==
LOC: ATC 03:38
DX: T86.11 Kidney transplant rejection (principal); Z94.0 Kidney transplant status; I25.10 Atherosclerotic heart disease of native coronary artery without angina pectoris; I12.0 Hypertensive chronic kidney disease with stage 5 chronic kidney disease or end stage renal disease; N18.6 End stage renal disease; E11.22 Type 2 diabetes mellitus with diabetic chronic kidney disease; E78.5 Hyperlipidemia, unspecified; E11.42 Type 2 diabetes mellitus with diabetic polyneuropathy; N25.81 Secondary hyperparathyroidism of renal origin; Z79.82 Long term (current) use of aspirin; Z79.899 Other long term (current) drug therapy
CPT/HCPCS: 96365; 96366; A9270; J1569

== ENCOUNTER 2021-12-28 01:34 | Day surgery (SDC) | payer OTHER ==
[~2021-12-28 01:34] MED LIST changes: -PROGRAF0.5 M1 PO; +TACR1 PO
== END 2021-12-28 17:24 | disposition home or self-care (01) ==
LOC: ATC 01:34
DX: T86.11 Kidney transplant rejection (principal); I12.9 Hypertensive chronic kidney disease with stage 1 through stage 4 chronic kidney disease, or unspecified chronic kidney disease; E11.22 Type 2 diabetes mellitus with diabetic chronic kidney disease; N18.6 End stage renal disease; E11.42 Type 2 diabetes mellitus with diabetic polyneuropathy; E78.5 Hyperlipidemia, unspecified; B19.20 Unspecified viral hepatitis C without hepatic coma; I25.10 Atherosclerotic heart disease of native coronary artery without angina pectoris; N25.81 Secondary hyperparathyroidism of renal origin; Z79.4 Long term (current) use of insulin; Z94.0 Kidney transplant status; Y83.0 Surgical operation with transplant of whole organ as the cause of abnormal reaction of the patient, or of later complication, without mention of misadventure at the time of the procedure
CPT/HCPCS: 96365; 96366; A9270; J1569

== ENCOUNTER → 2022-01-25 | Outpatient (CLI) | payer OTHER ==
[2022-01-26 13:54] LABS: Campylobacter Sp Not Detected (NOT DETECT); Cryptosporidium Not Detected (NOT DETECT); Cyclospora Cayetanensis Not Detected (NOT DETECT); E. Coli O157 Not Detected (NOT DETECT); Entamoeba Histolytica Not Detected (NOT DETECT); Enteroaggregative E. coli-EAEC Not Detected (NOT DETECT); Enteropathogenic E. coli-EPEC Not Detected (NOT DETECT); Enterotoxigenic E. coli-ETEC Not Detected (NOT DETECT); Plesiomonas Shigelloides Not Detected (NOT DETECT); Salmonella Sp Not Detected (NOT DETECT); Shiga Toxin-prod E. coli-STEC Not Detected (NOT DETECT); Shigella/Enteroin E. coli-EIEC Not Detected (NOT DETECT); Vibrio Cholerae Not Detected (NOT DETECT); Vibrio Sp Not Detected (NOT DETECT); Yersinia Enterocolitica Not Detected (NOT DETECT)
[2022-01-26 13:55] LABS: Adenovirus F 40/41 Not Detected (NOT DETECT); Astrovirus Not Detected (NOT DETECT); Giardia Lamblia Not Detected (NOT DETECT); Norovirus GI/GII Not Detected (NOT DETECT); Rotavirus A Not Detected (NOT DETECT); Sapovirus Not Detected (NOT DETECT)
== END | disposition home or self-care (01) ==
LOC: LAB SHORT 14:00 → LAB 14:00
PROVIDERS: Family Medicine
DX: R19.7 Diarrhea, unspecified (principal)
CPT/HCPCS: 87507

== ENCOUNTER 2022-02-23 19:05 | Emergency (ER) | payer OTHER ==
[~2022-02-23] VITALS: Ht 182.9 cm; Wt 109.8 kg
[~2022-02-23 19:05] MED LIST changes: +PROGRAF0.5 M1 PO; -TACR1 PO
[2022-02-23 19:33] LABS: BASOPHILS ABSOLUTE AUTO 0.01 K/mm3 (0.00-0.23); BASOPHILS PERCENT AUTO 0 % (0-2); EOSINOPHILS ABSOLUTE AUTO 0.02 K/mm3 (0.00-0.68); EOSINOPHILS PERCENT AUTO 0 % (0-6); Hematocrit 33.4 % (37.0-53.0); Hemoglobin 10.9 g/dL (13.5-17.5); IMMATURE GRAN ABSOLUTE AUTO 0.05 K/mm3 (0.00-0.10); IMMATURE GRAN PERCENT AUTO 1 % (0-1); LYMPHOCYTES ABSOLUTE AUTO 0.81 K/mm3 (0.84-5.20); LYMPHOCYTES PERCENT AUTO 14 % (21-46); MONOCYTES ABSOLUTE AUTO 0.43 K/mm3 (0.16-1.47); MONOCYTES PERCENT AUTO 7 % (4-13); Mean Corpuscular HGB Conc 32.6 g/dL (31.5-36.5); Mean Corpuscular Volume 92 fL (80-100); Mean Platelet Volume 10.2 fL (9.1-12.4); NEUTROPHILS ABSOLUTE AUTO 4.47 K/mm3 (1.96-9.15); NEUTROPHILS PERCENT AUTO 77 % (41-73); Platelet Count 136 K/mm3 (150-400); RDW Coefficient Variation 14.3 % (11.7-14.2); RDW Standard Deviation 48.2 fL (35.1-46.3); Red Blood Cell Count 3.63 M/mm3 (4.30-5.90); White Blood Cell Count 5.79 K/mm3 (4.00-11.30)
[2022-02-23 19:53] LABS: Albumin, Blood 3.6 g/dL (3.4-5.0); Bilirubin, Total 0.7 mg/dL (0.1-1.0); Bun/Creatinine Ratio 25.2 (12.0-20.0); Calcium, Blood 8.6 mg/dL (8.5-10.1); Creatinine, Blood 1.27 mg/dL (0.60-1.20); Globulin, Blood 3.6 g/dL (2.2-4.0); Potassium, Blood 4.3 mmol/L (3.5-5.5); Total Protein, Blood 7.2 g/dL (6.4-8.2)
[2022-02-23] MEDS ORDERED: [UNRECOGNIZED DRUG - CODE] PO (20:28)
[2022-02-23] MEDS ORDERED: PARO10 PO (20:31)
[2022-02-23] MEDS ORDERED: OXYC5 PO (21:37)
== END 2022-02-23 22:08 | disposition home or self-care (01) ==
LOC: ER 19:05
PROVIDERS: Student in an Organized Health Care Education/Training Program
DX: S42.291A Other displaced fracture of upper end of right humerus, initial encounter for closed fracture (principal); I25.10 Atherosclerotic heart disease of native coronary artery without angina pectoris; E11.22 Type 2 diabetes mellitus with diabetic chronic kidney disease; I13.2 Hypertensive heart and chronic kidney disease with heart failure and with stage 5 chronic kidney disease, or end stage renal disease; N18.6 End stage renal disease; I50.9 Heart failure, unspecified; J44.9 Chronic obstructive pulmonary disease, unspecified; I25.2 Old myocardial infarction; W10.9XXA Fall (on) (from) unspecified stairs and steps, initial encounter; Z95.5 Presence of coronary angioplasty implant and graft; Z79.899 Other long term (current) drug therapy; Z79.82 Long term (current) use of aspirin; Z79.52 Long term (current) use of systemic steroids
CPT/HCPCS: 36415; 73030; 80053; 85025; A9270; J1170; J3010

== ENCOUNTER 2022-04-13 09:08 | Emergency (ER) | payer OTHER ==
[~2022-04-13] VITALS: Ht 182.9 cm; Wt 102.1 kg
[~2022-04-13 09:08] MED LIST changes: +PARO10 PO; +[UNRECOGNIZED DRUG - CODE] PO
[2022-04-13 10:07] LABS: BASOPHILS ABSOLUTE AUTO 0.02 K/mm3 (0.00-0.23); BASOPHILS PERCENT AUTO 0 % (0-2); EOSINOPHILS ABSOLUTE AUTO 0.02 K/mm3 (0.00-0.68); EOSINOPHILS PERCENT AUTO 0 % (0-6); Hematocrit 35.5 % (37.0-53.0); Hemoglobin 11.8 g/dL (13.5-17.5); IMMATURE GRAN ABSOLUTE AUTO 0.04 K/mm3 (0.00-0.10); IMMATURE GRAN PERCENT AUTO 1 % (0-1); LYMPHOCYTES ABSOLUTE AUTO 0.72 K/mm3 (0.84-5.20); LYMPHOCYTES PERCENT AUTO 12 % (21-46); MONOCYTES ABSOLUTE AUTO 0.46 K/mm3 (0.16-1.47); MONOCYTES PERCENT AUTO 7 % (4-13); Mean Corpuscular HGB 29.7 pg (26.0-34.0); Mean Corpuscular HGB Conc 33.2 g/dL (31.5-36.5); Mean Corpuscular Volume 89 fL (80-100); Mean Platelet Volume 9.4 fL (9.1-12.4); NEUTROPHILS ABSOLUTE AUTO 4.96 K/mm3 (1.96-9.15); NEUTROPHILS PERCENT AUTO 80 % (41-73); Platelet Count 137 K/mm3 (150-400); RDW Coefficient Variation 13.5 % (11.7-14.2); Red Blood Cell Count 3.97 M/mm3 (4.30-5.90); White Blood Cell Count 6.22 K/mm3 (4.00-11.30)
[2022-04-13 10:26] LABS: Albumin, Blood 3.6 g/dL (3.4-5.0); Bilirubin, Total 0.7 mg/dL (0.1-1.0); Bun/Creatinine Ratio 22.8 (12.0-20.0); Calcium, Blood 8.8 mg/dL (8.5-10.1); Creatinine, Blood 1.01 mg/dL (0.60-1.20); Globulin, Blood 3.7 g/dL (2.2-4.0); Potassium, Blood 4.1 mmol/L (3.5-5.5); Total Protein, Blood 7.3 g/dL (6.4-8.2)
[2022-04-14] MEDS ORDERED: FINA5 PO (21:58)
== END 2022-04-13 14:10 | disposition home or self-care (01) ==
LOC: ER 09:08
PROVIDERS: Emergency Medicine
DX: R07.89 Other chest pain (principal); I25.10 Atherosclerotic heart disease of native coronary artery without angina pectoris; I13.2 Hypertensive heart and chronic kidney disease with heart failure and with stage 5 chronic kidney disease, or end stage renal disease; N18.6 End stage renal disease; E11.22 Type 2 diabetes mellitus with diabetic chronic kidney disease; J44.9 Chronic obstructive pulmonary disease, unspecified; I25.2 Old myocardial infarction; E78.5 Hyperlipidemia, unspecified; Z94.0 Kidney transplant status; Z79.82 Long term (current) use of aspirin; Z79.52 Long term (current) use of systemic steroids; Z79.899 Other long term (current) drug therapy
CPT/HCPCS: 36415; 71045; 80053; 83880; 84484; 85025; 93005; 93010

== ENCOUNTER 2022-04-14 17:21 | Observation (INO) | payer OTHER ==
[~2022-04-14] VITALS: Ht 182.9 cm; Wt 110.3 kg
[2022-04-14 18:11] LABS: BASOPHILS ABSOLUTE AUTO 0.01 K/mm3 (0.00-0.23); BASOPHILS PERCENT AUTO 0 % (0-2); EOSINOPHILS ABSOLUTE AUTO 0.01 K/mm3 (0.00-0.68); EOSINOPHILS PERCENT AUTO 0 % (0-6); Hematocrit 38.1 % (37.0-53.0); Hemoglobin 12.5 g/dL (13.5-17.5); IMMATURE GRAN ABSOLUTE AUTO 0.04 K/mm3 (0.00-0.10); IMMATURE GRAN PERCENT AUTO 1 % (0-1); LYMPHOCYTES ABSOLUTE AUTO 0.73 K/mm3 (0.84-5.20); LYMPHOCYTES PERCENT AUTO 14 % (21-46); MONOCYTES ABSOLUTE AUTO 0.38 K/mm3 (0.16-1.47); MONOCYTES PERCENT AUTO 7 % (4-13); Mean Corpuscular HGB 29.1 pg (26.0-34.0); Mean Corpuscular HGB Conc 32.8 g/dL (31.5-36.5); Mean Corpuscular Volume 89 fL (80-100); Mean Platelet Volume 9.4 fL (9.1-12.4); NEUTROPHILS ABSOLUTE AUTO 4.13 K/mm3 (1.96-9.15); NEUTROPHILS PERCENT AUTO 78 % (41-73); Platelet Count 155 K/mm3 (150-400); RDW Coefficient Variation 13.3 % (11.7-14.2); RDW Standard Deviation 43.6 fL (35.1-46.3); Red Blood Cell Count 4.29 M/mm3 (4.30-5.90)
[2022-04-14 18:30] LABS: Albumin, Blood 3.8 g/dL (3.4-5.0); Bilirubin, Total 0.6 mg/dL (0.1-1.0); Bun/Creatinine Ratio 19.8 (12.0-20.0); Calcium, Blood 9.3 mg/dL (8.5-10.1); Creatinine, Blood 1.11 mg/dL (0.60-1.20); Globulin, Blood 3.9 g/dL (2.2-4.0); Potassium, Blood 4.4 mmol/L (3.5-5.5); Total Protein, Blood 7.7 g/dL (6.4-8.2)
[2022-04-14 21:53] LABS: Magnesium, Blood 1.6 mg/dL (1.6-2.4); Thyroid Stimulating Hormone 2.02 uIU/mL (0.360-4.800)
[2022-04-14] MEDS ORDERED: FINA5 PO (21:58)
--- NOTE | 2022-04-15 03:14 | NUR ---
ORDER TO VERIFY HOME MEDICATIONS WAS COMPLETED AT TIME OF PATIENT'S ADMISSION. HE IS ON SEVERAL ANTI REJECTIONS MEDICATIONS WELL OTHER PRESCRIPTION MEDICATIONS. HE HAS A REGIMEN THAT HE AND HIS ARE VERY STRICT ABOUT, AND ALL OF HIS MEDS ARE TAKEN AT 0600, OR 0600 AND 1800. CALL PLACED TO NIGHT HOSPITALIST TO INFORM AND TO GET HOME MEDS ORDERED AT THE RIGHT TIMES FOR THE PATIENT. AWAITING RETURN CALL.
--- NOTE | 2022-04-15 13:35 | NUR ---
DR NAVA IN TO SEE PT PLAN TO DC
--- NOTE | 2022-04-15 13:49 | NUR ---
NOTIFIED BY TELE PT HAD 13 BEAT RUN OF SVT AT 150. ADVISED DR NAVA. NO NEW ORDERS.
[2022-04-15] MEDS ORDERED: HYDHCL25 PO (14:30)
--- NOTE | 2022-04-15 18:28 | NUR ---
SUMMARY PT HAD DC ORDERS. DC PAPERWORK WAS SIGNED, IV AND TELE WERE DC'D AND PT WAS AWAITING A WC WHEN HAD AN EPISODE OF HEART RACING, CLAMMY SKIN AND DIAPHORESIS. TOOK VSS WHICH SHOWED A HR IN 130S AND ELEVATED BP. CALLED DR NAVA AND OBTAINED ORDER FOR EKG WHICH WAS DONE AND SHOWED NSR. PT CONTINUED TO HAVE EPISODES OF ELEVATED HR ONCE PLACED BACK ON TELE AND DC ORDERS WERE CANCELLED. THE LATEST EPISODE SUSTAINED FOR APPROXIMATELY 10 MINUTES, AT WHICH TIME, DR NAVA AND DR DE LA TORRE CAME TO ROOM AND ASSESSED PT. CARVEDILOL WAS GIVEN EARLY PER DR DE LA TORRE'S VERBAL ORDER. IV ACCESS WAS OBTAINED BY ED AFTER MULTIPLE ATTEMPTS TO L HAND. PT RECEIVED PM MEDS PER ORDERS. SAT UP ON EDGE OF BED AND ATE DINNER. SPOUSE HAS BEEN AT BEDSIDE T/O SHIFT. PLAN FOR ECHO AND STRESS TEST TOMORROW. CALL LIGHT IN REACH.
--- NOTE | 2022-04-16 02:14 | NUR ---
PATIENT HAS BEEN RESTING COMFORTABLY SINCE EARLY IN SHIFT. TELE HAS REMAINED SR 70-80'S SO FAR TONIGHT. NO CHEST PAIN OR PRESSURE AT THIS TIME. WILL CONTINUE CLOSE MONITORING.
[2022-04-16 05:18] LABS: BASOPHILS ABSOLUTE AUTO 0.02 K/mm3 (0.00-0.23); BASOPHILS PERCENT AUTO 0 % (0-2); EOSINOPHILS ABSOLUTE AUTO 0.04 K/mm3 (0.00-0.68); EOSINOPHILS PERCENT AUTO 1 % (0-6); Hematocrit 36.1 % (37.0-53.0); Hemoglobin 11.6 g/dL (13.5-17.5); IMMATURE GRAN ABSOLUTE AUTO 0.02 K/mm3 (0.00-0.10); IMMATURE GRAN PERCENT AUTO 0 % (0-1); LYMPHOCYTES ABSOLUTE AUTO 0.85 K/mm3 (0.84-5.20); LYMPHOCYTES PERCENT AUTO 15 % (21-46); MONOCYTES ABSOLUTE AUTO 0.54 K/mm3 (0.16-1.47); MONOCYTES PERCENT AUTO 10 % (4-13); Mean Corpuscular HGB 28.6 pg (26.0-34.0); Mean Corpuscular HGB Conc 32.1 g/dL (31.5-36.5); Mean Corpuscular Volume 89 fL (80-100); Mean Platelet Volume 9.6 fL (9.1-12.4); NEUTROPHILS ABSOLUTE AUTO 4.21 K/mm3 (1.96-9.15); NEUTROPHILS PERCENT AUTO 74 % (41-73); Platelet Count 135 K/mm3 (150-400); RDW Coefficient Variation 13.3 % (11.7-14.2); RDW Standard Deviation 43.2 fL (35.1-46.3); Red Blood Cell Count 4.05 M/mm3 (4.30-5.90); White Blood Cell Count 5.68 K/mm3 (4.00-11.30)
[2022-04-16 05:41] LABS: Bun/Creatinine Ratio 17.5 (12.0-20.0); Creatinine, Blood 1.03 mg/dL (0.60-1.20); Magnesium, Blood 1.5 mg/dL (1.6-2.4); Phosphorus, Blood 2.7 mg/dL (2.5-4.9); Potassium, Blood 3.9 mmol/L (3.5-5.5)
--- NOTE | 2022-04-16 08:00 | NUR ---
Pt having a lexiscan this am, npo after mid, s.o. in room, a/ox3, pleasant and cooperative with care, a/ox3, pleasnant and cooperative with care, follows commands well, denies complaints, denies c.p. since yesterday, lungs are clear t/o, resp even and unlabored, no cough noted, hrr, tele in place running sr in the 70's a bit of edema noted to right hand, he reports this is due to the fx humorus, iv site is clear and patent, s.l. to left hand, btx4, abd flat soft nontender, voids without diff, skin c/w/d, jhonny, marito, call light in reach.
--- NOTE | 2022-04-16 08:53 | NUR ---
PATIENT REMAINED IN A SINUS RHYTHM IN THE 70'S OVERNIGHT. NO COMPLAINTS OF CHEST PAIN OR PRESSURE SINCE EPISODE YESTERDAY AFTERNOON. PATIENT IS A VERY CONSCIENTIOUS ADVOCATE FOR HIMSELF. HE HAS BEEN NPO SINCE 2400 EXCEPT FOR MORNING MEDS. AFTER DISCUSSING WITH NIGHT HOSPITALIST, IT WAS DECIDED TO HOLD COREG UNTIL AFTER LEXISCAN PROCEDURE.
--- NOTE | 2022-04-16 18:34 | NUR ---
at bedside all day, pt had stress test and tolerated it, still waiting on the second part to be read but will stay one more night, no further changes this shift. call light in reach.
--- NOTE | 2022-04-17 04:13 | NUR ---
TRAVEL PT SUMMARY HAS BEEN RESTING QUIETLY WITH FEW INTERRUPTIONS SINCE HS. AT BEDSIDE FOR SUPPORT. MED Eve SR. NO C/O VOICED. NO NOTED ACUTE DISTRESS. AWAITING RESULTS OF SCAN DONE YESTERDAY. CALL LIGHT IN REACH.
[2022-04-17 05:40] LABS: Hematocrit 37.2 % (37.0-53.0); Hemoglobin 11.8 g/dL (13.5-17.5); Mean Corpuscular HGB 28.9 pg (26.0-34.0); Mean Corpuscular HGB Conc 31.7 g/dL (31.5-36.5); Mean Corpuscular Volume 91 fL (80-100); Mean Platelet Volume 9.7 fL (9.1-12.4); Platelet Count 140 K/mm3 (150-400); RDW Coefficient Variation 13.4 % (11.7-14.2); RDW Standard Deviation 44.9 fL (35.1-46.3); Red Blood Cell Count 4.08 M/mm3 (4.30-5.90); White Blood Cell Count 4.87 K/mm3 (4.00-11.30)
[2022-04-17 05:49] LABS: Bun/Creatinine Ratio 17.6 (12.0-20.0); Creatinine, Blood 1.19 mg/dL (0.60-1.20); Magnesium, Blood 1.7 mg/dL (1.6-2.4); Phosphorus, Blood 3.2 mg/dL (2.5-4.9); Potassium, Blood 3.9 mmol/L (3.5-5.5)
--- NOTE | 2022-04-17 11:00 | NUR ---
PT DISCHARGED WITH ALL PERSONAL BELONGINGS TO PRIVATE VEHICLE, DRIVEN BY . IV REMOVED WITHOUT INCIDENT. PT ESCORTED VIA WHEELCHAIR PROPELLED BY RESISTOR WINDER. DISCHARGE TEACHING COMPLETED, NO FURTHER QUESTIONS AT THIS TIME. DISCHARGE MEDS FAXED TO [facility].
== END 2022-04-17 12:08 | disposition home or self-care (01) ==
LOC: ER 17:21 → MEDS 17:22
PROVIDERS: Family Medicine; Nurse Practitioner Acute Care; Physician Assistant; ADMIT Internal Medicine
DX: R07.9 Chest pain, unspecified (principal); Z94.0 Kidney transplant status; I10 Essential (primary) hypertension; E11.9 Type 2 diabetes mellitus without complications; J44.9 Chronic obstructive pulmonary disease, unspecified; E78.5 Hyperlipidemia, unspecified; Z79.82 Long term (current) use of aspirin; Z79.52 Long term (current) use of systemic steroids; Z87.891 Personal history of nicotine dependence; K21.9 Gastro-esophageal reflux disease without esophagitis; I25.2 Old myocardial infarction; Z95.5 Presence of coronary angioplasty implant and graft; R00.0 Tachycardia, unspecified
CPT/HCPCS: 36415; 78452; 80048; 80053; 83690; 83735; 83880; 84100; 84443; 84484; 85025; 85027; 93005; 93010; 93017; 93246; 94760; 96372; 96374; 99285-25; A9270; A9500; C8929; G0378; J0280; J1644; J2785; J3475; J7507; J7512; J7518; Q9957

== ENCOUNTER → 2022-04-30 | Outpatient (CLI) | payer OTHER ==
[~2022-04-30] MED LIST changes: +HYDHCL25 PO
[2022-04-30 10:58] LABS: Creatinine Urine 45.1 mg/dL (27.00-270.00); Microalbumin, Urine Quant. 25.5 mg/L (0.000-20.000); Protein, Urine Quantitative 13.4 mg/dL (0.0-11.9)
== END | disposition home or self-care (01) ==
LOC: LAB SHORT 07:30 → LAB 07:30
PROVIDERS: Internal Medicine Nephrology
DX: N18.2 Chronic kidney disease, stage 2 (mild) (principal); D63.1 Anemia in chronic kidney disease; N25.81 Secondary hyperparathyroidism of renal origin; E55.9 Vitamin D deficiency, unspecified; E78.00 Pure hypercholesterolemia, unspecified; R76.9 Abnormal immunological finding in serum, unspecified; R94.5 Abnormal results of liver function studies; R94.6 Abnormal results of thyroid function studies
CPT/HCPCS: 81050; 82043; 82570; 84156